=== PATIENT | female | born 1960 | race African-American/Black ===

== ENCOUNTER 2018-06-07 17:30 | Emergency (ER) | payer MEDICAID ==
[~2018-06-07] VITALS: Ht 165.1 cm; Wt 82.0 kg
[~2018-06-07 17:30] MED LIST: AMLO10TA4; HCTZ; MOTRIN; TRAMADOL
[2018-06-07 17:31] VITALS: BP 143/81
[2018-06-07] MEDS ORDERED: BACITRACIN ZINC OINT UDPKT TOP ONE (18:45)
[2018-06-07] MEDS ORDERED: TETANUS, DIPHTHERIA, PERTUSSIS VAC/PF 0.5ML (>7YR OLD) IM ONE (18:45)
[2018-06-07] MEDS ORDERED: AMOXICILLIN/POTASSIUM CLAVULANATE 875/125MG TAB PO ONE (19:15)
== END 2018-06-07 19:21 | disposition home or self-care (01) ==
LOC: ER 17:30
DX: S81.852A Open bite, left lower leg, initial encounter (principal); S81.851A Open bite, right lower leg, initial encounter; I10 Essential (primary) hypertension; Z88.6 Allergy status to analgesic agent; Z88.8 Allergy status to other drugs, medicaments and biological substances; W54.0XXA Bitten by dog, initial encounter; Y93.89 Activity, other specified; Y92.89 Other specified places as the place of occurrence of the external cause; Y99.8 Other external cause status
CPT/HCPCS: 90471; 90715; 99283

== ENCOUNTER 2022-05-21 12:19 | Emergency (ER) | payer OTHER ==
[~2022-05-21] VITALS: Ht 165.1 cm; Wt 82.0 kg
[~2022-05-21 12:19] MED LIST changes: +MELO-105 MT
[2022-05-21] MEDS ORDERED: LIDOCAINE HCL 1% 20ML VIAL (Pyxis) INJ INFIL ONE (14:45)
[2022-05-21] MEDS ORDERED: IBUPROFEN 600MG TABLET PO ONE (14:45)
[2022-05-21 14:53] VITALS: BP 125/81
[2022-05-21] MEDS ORDERED: SULF1TAB48 MT (16:38)
== END 2022-05-21 17:07 | disposition home or self-care (01) ==
LOC: ER 12:34
DX: L03.011 Cellulitis of right finger (principal)
CPT/HCPCS: 10060; 99283; Z7610; 99282